=== PATIENT | female | born 1985 | race African-American/Black ===

== ENCOUNTER 2018-02-23 21:24 | Emergency (ER) | payer SELFPAY ==
[2018-02-23 22:09] VITALS: BP 136/80
[2018-02-23] MEDS ORDERED: PENICILLIN V POTASSIUM 500 MG TABLET PO ONE (22:14)
[2018-02-23] MEDS ORDERED: ACETAMINOPHEN 325 MG TABLET PO ONE (22:14)
--- NOTE | 2018-02-23 22:17 | ER Document Report ---
HPI - HPI Patient complains to provider of: Jaw pain Pain Level: 4 Context: Patient is a 32-year-old female presents with jaw pain for the past 2 weeks. Patient states that she has had pain over her lower jaw molars were significantly admits to pain along her mandible and into her ears. She states that she has been stressed trying to find a job recently. She has any fevers, chills, swelling, difficulty swallowing, difficulty breathing. States that Tylenol Motrin to help with her pain - DERM Skin Color: Normal Past Medical History - Social History Smoking Status: Former Smoker Chew tobacco use (# tins/day): No Frequency of alcohol use: None Drug Abuse: None Family History: Reviewed & Not Pertinent Patient has suicidal ideation: No Patient has homicidal ideation: No Renal/ Medical History: Denies: Hx Peritoneal Dialysis Vertical Provider Document - CONSTITUTIONAL Agree With Documented VS: Yes Notes: PHYSICAL EXAM GENERAL: Alert, interacts well. HEAD: Normocephalic, atraumatic. EYES: Pupils equal, round, and reactive to light. Extraocular movements intact. ENT: Oral mucosa moist, tongue midline. Dental caries noted throughout with a visible cavity on 32 and 17 Uvula midline. Airway patent. No evidence of tonsillar enlargement, peritonsillar abscess, retropharyngeal abscess. NECK: Full range of motion. Supple. Trachea midline. NEUROLOGICAL: Alert and oriented x4. Normal speech. PSYCH: Normal affect, normal mood. SKIN: Warm, dry, normal turgor. No rashes or lesions noted. - INFECTION CONTROL TRAVEL OUTSIDE OF THE [place] IN LAST 30 DAYS: No Course - Re-evaluation Re-evalutation: 02/23/18 22:14 Patient is a 32-year-old female presents with symptoms consistent with bruxism. Discussed with her to utilize [id number] guards at night and she can continue taking anti-inflammatories as needed for pain. Patient states she is concerned that she does have a developing tooth infection due to pain worse at her molars. Discussed with her this is likely related to her bruxism but she is requesting antibiotic. Discussed with her to follow-up with the dentist. Patient agrees with plan. - Vital Signs Vital signs: Temp Pulse Resp BP Pulse Ox 97.9 F 68 18 136/80 H 100 02/23/18 22:08 02/23/18 22:08 02/23/18 22:08 02/23/18 22:08 02/23/18 22:08 Discharge - Discharge Clinical Impression: Bruxism (teeth grinding) Condition: Good Disposition: HOME, SELF-CARE Additional Instructions: You have been seen for dental pain. It is very important that you follow-up with a dentist for definitive care. Please return if you develop fever greater than 101, swelling in your face, vomiting, difficulty breathing or swallowing, or any other symptoms that are concerning to you. For pain you should take ibuprofen 600 mg every 6 hours as needed. Prescriptions: Penicillin V Potassium [Penicillin Vk 500 mg Tablet] 500 mg PO TID 7 Days #21 tablet Referrals: [facility] [NO LOCAL MD] - Follow up as needed
== END 2018-02-23 22:26 | disposition home or self-care (01) ==
LOC: ER 21:24
DX: G47.63 Sleep related bruxism (principal); K02.9 Dental caries, unspecified; R68.84 Jaw pain; Z87.891 Personal history of nicotine dependence
CPT/HCPCS: 99283